=== PATIENT | male | born 1960 | race Caucasian/White ===

== ENCOUNTER 2019-04-08 15:13 | Emergency (ER) | payer OTHER ==
[~2019-04-08] VITALS: Ht 188 cm; Wt 136.4 kg
[2019-04-08 15:41] VITALS: Ht 188 cm; Wt 136.4 kg
[2019-04-08] MEDS ORDERED: CLARITIN 10 MG10 MG PO (15:43)
[2019-04-08] MEDS ORDERED: OMEPRAZOLE20 M1 PO (15:44)
[2019-04-08 16:16] LABS: BASOPHILS 0.2 % (0-2); EOSINOPHILS 0.5 % (0-7); HEMOGLOBIN 15.4 g/dL (13.5-17.5); IMMATURE GRANULOCYTES 0.4 % (0-5); LYMPHOCYTES 8.9 % (15-50); MCH 29.5 pg (26.0-34.0); MCHC 33.5 g/dL (31.0-37.0); MCV 88.1 fL (80.0-100.0); MEAN PLATELET VOLUME 10.9 fL (7.4-10.4); MONOCYTES 4.1 % (2-11); NEUTROPHILS 85.9 % (40-80); PLATELET COUNT 192 10x3/uL (130-400); RBC 5.22 10x6/uL (4.20-6.10); RDW 13.7 % (11.5-14.5); WBC 13.4 10x3/uL (4.8-10.8)
[2019-04-08 16:32] LABS: ANION GAP 12.1 mmol/L (8-16); CALCIUM 9.7 mg/dL (8.5-10.1); CARBON DIOXIDE 29.8 mmol/L (21.0-32.0); CREATININE - SERUM 1.4 mg/dL (0.6-1.3); POTASSIUM - SERUM 3.9 mmol/L (3.5-5.1)
[2019-04-08 16:36] LABS: ALBUMIN 4.2 g/dL (3.4-5.0); BILIRUBIN - TOTAL 0.56 mg/dL (0.2-1.3); PROTEIN - SERUM 8.6 g/dL (6.4-8.2)
[2019-04-08 16:38] LABS: APPEARANCE CLEAR (CLEAR); BILIRUBIN NEGATIVE (NEGATIVE); COLOR YELLOW (YELLOW); GLUCOSE NEGATIVE (NEGATIVE); KETONE NEGATIVE (NEGATIVE); NITRITE NEGATIVE (NEGATIVE); PROTEIN TRACE mg/dL (NEGATIVE); SPECIFIC GRAVITY 1.025 (1.005-1.020); UROBILINOGEN NORMAL (NORMAL)
[2019-04-08 16:57] LABS: BACTERIA FEW /hpf (NEGATIVE); RED CELLS - URINE 25-50 /hpf (0-5); WHITE CELLS - URINE 0-5 /hpf (NEGATIVE)
[2019-04-08] MEDS ORDERED: ZOFRAN ODT4 MG/UDTAB PO (18:36)
[2019-04-08] MEDS ORDERED: FLOMAX0.4 MG PO (18:36)
[2019-04-08] MEDS ORDERED: HYDROCODON-ACE1 EA10 PO (18:36)
[2019-04-08] MEDS ORDERED: CIPRO500 MG PO (18:59)
[2019-04-08 19:10] VITALS: BP 119/72
== END 2019-04-08 19:10 | disposition home or self-care (01) ==
LOC: D.ER 15:13
PROVIDERS: Family Medicine
DX: N28.9 Disorder of kidney and ureter, unspecified (principal); R31.9 Hematuria, unspecified; N20.0 Calculus of kidney